=== PATIENT | male | born 1955 | race Caucasian/White ===

== ENCOUNTER 2021-12-27 15:40 | Inpatient (IN) | payer MEDICARE ==
[2021-12-27] MEDS ORDERED: ROCEPHIN 1 Gm-D5w 50 ml Bag** 1 G/50 ML IVPB IV STA (15:42)
[2021-12-27] MEDS ORDERED: solu-MEDROL 125 MG, Sterile H2O 10 ml 2 ML IV ONE ×2 (15:42)
--- NOTE | 2021-12-27 15:42 | ERPHSYRPT ---
- History of Present Illness Time Seen by Provider: 12/27/21 15:42 Source: patient, EMS Exam Limitations: no limitations Physician History: Patient is a 66-year-old male who presents with a complaint of shortness of breath wheezing and weakness for 1 week. He has chronic back pain for which he takes Percocets he also has COPD and is always short of breath but gait got hypoxic this afternoon apparently and had some hallucinations. EMS found his O2 sat at home 1 4 L at 88% they gave him a nebulizer treatment and his O2 sat went to 96. He was afebrile his twelve-lead showed a sinus rhythm rate of 81. Timing/Duration: week(s) (1), worse Severity of Dyspnea-Max: moderate Severity of Dyspnea-Current: mild Possible Cause: frequent episodes Associated Symptoms: No chest pain/discomfort Allergies/Adverse Reactions: No Known Drug Allergies Allergy (Verified 12/27/21 15:42) Home Medications: Amlodipine Besylate [Norvasc] 1 tab PO DAILY 12/27/21 [History] Fluticasone/Umeclidin/Vilanter [Trelegy Ellipta 100-62.5-25] 1 puff PO DAILY 12/27/21 [History] Losartan Potassium [Cozaar] 1 tab PO DAILY 12/27/21 [History] Meloxicam [Mobic] 1 tab PO DAILY 12/27/21 [History] Oxycodone / APAP 10/325 mg [Oxycodone-Acetaminophen 10-325] 1 tab PO TID 12/27/21 [History] - Review of Systems Constitutional: No Fever, No Chills Eyes: No Symptoms Ears, Nose, & Throat: No Symptoms Respiratory: Dyspnea, Dyspnea on Exertion (LUND), No Cough Cardiac: No Chest Pain, No Edema, No Syncope Abdominal/Gastrointestinal: No Abdominal Pain, No Nausea, No Vomiting, No Diarrhea Genitourinary Symptoms: No Dysuria Musculoskeletal: Back Pain, No Neck Pain Skin: No Rash Neurological: No Dizziness, No Focal Weakness, No Sensory Changes Psychological: No Symptoms Endocrine: No Symptoms All Other Systems: Reviewed and Negative - Nursing Vital Signs Nursing Vital Signs: Initial Vital Signs Temperature 98.5 F 12/27/21 15:40 Pulse Rate 81 12/27/21 15:40 Respiratory Rate 20 12/27/21 15:40 Blood Pressure 179/92 12/27/21 15:40 O2 Sat by Pulse Oximetry 91 L 12/27/21 15:40 Pain Scale Pain Intensity 0 - Physical Exam General Appearance: mild distress Eye Exam: PERRL/EOMI Ears, Nose, Throat Exam: hearing grossly normal, normal ENT inspection Neck Exam: normal inspection, supple Respiratory Exam: respiratory distress, airway intact, wheezing Cardiovascular/Chest Exam: normal heart sounds, regular rate/rhythm Abdominal/Gastrointestinal Exam: soft, No tenderness, No distention, No mass Extremity Exam: non-tender, normal range of motion, normal inspection, no calf tenderness, no pedal edema Neurologic Exam: alert, oriented x 3, cooperative, content management specialist II-XII nml as tested, sensation nml, No motor deficits Skin Exam: normal color, warm, dry SpO2 Interpretation: hypoxic, O2 applied SpO2: 99 O2 Delivery: Nasal Cannula - Course Nursing assessment & vital signs reviewed: Yes EKG Interpreted by Me: RATE (81), Other (Indeterminate axis nonspecific ST-T wave changes) - Radiology Exams Chest X-ray Interpretation: Other (Chest x-ray shows bilateral basilar infiltrates ve rsus atelectasis) Ordered Tests: Active Orders 24 hr Category Date Time Status EKG-ER Only STAT Care 12/27/21 15:42 Active IV Insertion STAT Care 12/27/21 15:42 Active Oxygen-ED Only Nasal Cannula 4 lpm Care 12/27/21 15:42 Active CHEST 1 VIEW (PORTABLE) Stat Exams 12/27/21 15:43 Completed BLOOD CULTURE Stat Lab 12/27/21 16:00 Received CBC W DIFF Stat Lab 12/27/21 16:00 Completed CMP Stat Lab 12/27/21 16:00 Completed D-DIMER QUANTITATIVE Stat Lab 12/27/21 16:00 Completed Lactic Acid Stat Lab 12/27/21 15:42 Completed MAGNESIUM Stat Lab 12/27/21 16:00 Completed NT PRO BNP Stat Lab 12/27/21 16:00 Completed PROTIME WITH INR Stat Lab 12/27/21 16:00 Completed TROPONIN Q3H Lab 12/27/21 16:00 Completed TROPONIN Q3H Lab 12/27/21 18:45 Ordered TROPONIN Q3H Lab 12/27/21 21:45 Ordered TROPONIN Q3H Lab 12/28/21 00:45 Ordered TROPONIN Q3H Lab 12/28/21 03:45 Ordered UA W/RFX CULTURE Stat Lab 12/27/21 17:25 Results Respiratory Therapy Assessment DAILY RT 12/27/21 16:25 Active Respiratory Therapy Consult ONCE RT 12/27/21 15:45 Completed Medication Summary Discontinued Medications Generic Name Dose Route Start Last Admin Trade Name Sara PRN Reason Stop Dose Admin Albuterol/Ipratropium Confirm 12/27/21 16:20 Ipratropium/Albuterol Sulfate 3 Ml Ampul.Neb Administered 12/27/21 16:21 Dose 3 ml IH .STK-MED ONE Albuterol/Ipratropium 3 ml 12/27/21 16:23 12/27/21 16:24 Ipratropium/Albuterol Sulfate 3 Ml Ampul.Neb IH 12/27/21 16:24 3 ml STAT ONE Administration Methylprednisolone Sodium 0 mg 12/27/21 15:42 12/27/21 15:57 Succinate 125 mg/ Sterile IV 12/27/21 15:43 125 mg Water 2 ml STAT ONE Administration Furosemide 40 mg 12/27/21 16:20 12/27/21 16:45 Furosemide 40 Mg/4 Ml Vial IV 12/27/21 16:21 40 mg STAT ONE Administration Furosemide Confirm 12/27/21 16:45 Furosemide 40 Mg/4 Ml Vial Administered 12/27/21 16:46 Dose 40 mg .ROUTE .STK-MED ONE Ceftriaxone Sodium/Dextrose 1 g in 50 mls @ 100 mls/hr 12/27/21 15:42 12/27/21 16:27 Rocephin 1 Gm-D5w 50 Ml Bag IV 12/27/21 16:11 Infused STAT STA Infusion Ceftriaxone Sodium/Dextrose Confirm 12/27/21 15:54 Rocephin 1 Gm-D5w 50 Ml Bag Administered 12/27/21 15:55 Dose 1 g in 50 mls @ ud IV .STK-MED ONE Methylprednisolone Sodium Succinate Confirm 12/27/21 15:54 Methylprednis Sod Succ 125 Mg/2 Ml Vial Administered 12/27/21 15:55 Dose 125 mg .ROUTE .STK-MED ONE Sterile Water Confirm 12/27/21 15:54 Water For Injection,Sterile 10 Ml Vial Administered 12/27/21 15:55 Dose 10 ml IJ .STK-MED ONE Lab/Rad Data: Laboratory Result Diagrams 12/27/21 16:00 12/27/21 16:00 Laboratory Results 12/27/21 12/27/21 12/27/21 Range/Units 17:25 16:00 16:00 WBC (4.0-10.5) x10^3/uL RBC (4.1-5.6) x10^6/uL Hgb (12.5-18.0) g/dL Hct (42-50) % MCV (78-100) fL MCH (26-32) pg MCHC (32-36) g/dL RDW (11.5-14.0) % Plt Count (150-450) x10^3/uL MPV (7.5-11.0) fL Gran % (36.0-66.0) % Immature Gran % (Auto) (0.00-0.4) % Nucleat RBC Rel Count (0.00-0.1) % Eos # (Auto) (0-0.5) x10^3/uL Immature Gran # (Auto) (0.00-0.03) x10^3u/L Absolute Lymphs (auto) (1.0-4.6) x10^3/uL Absolute Monos (auto) (0.0-1.3) x10^3/uL Absolute Nucleated RBC (0.00-0.01) x10^3u/L Lymphocytes % (24.0-44.0) % Monocytes % (0.0-12.0) % Eosinophils % (0.00-5.0) % Basophils % (0.0-0.4) % Absolute Granulocytes (1.4-6.9) x10^3/uL Basophils # (0-0.4) x10^3/uL PT (9.4-12.5) SECONDS INR (0.8-3.0) D-Dimer (0.0-0.50) mg/L Sodium (137-145) mmol/L Potassium (3.5-5.1) mmol/L Chloride (98-107) mmol/L Carbon Dioxide (22-30) mmol/L Anion Gap (5-15) MEQ/L BUN (9-20) mg/dL Creatinine (0.66-1.25) mg/dL Estimated GFR ML/MIN Glucose (74-106) mg/dL Lactic Acid (0.4-2.0) Calcium (8.4-10.2) mg/dL Magnesium (1.6-2.3) mg/dL Total Bilirubin (0.2-1.3) mg/dL AST (17-59) U/L ALT (0-50) U/L Alkaline Phosphatase (38-126) U/L Troponin I 0.032 (0.000-0.034) ng/mL NT-Pro-B Natriuret Pep (0-900) pg/mL Serum Total Protein (6.3-8.2) g/dL Albumin (3.5-5.0) g/dL Urinalys Dipstick Clnc MAIN LAB Urine Color YELLOW (YELLOW) Urine Appearance CLEAR (CLEAR) Urine pH 6.0 (5-6) Ur Specific [place] 1.020 (1.005-1.025) POC Urine Protein Conf NEGATIVE (Negative) Urine Ketones NEGATIVE (NEGATIVE) Urine Nitrite NEGATIVE (NEGATIVE) Urine Bilirubin NEGATIVE (NEGATIVE) Urine Urobilinogen 0.2 (0-1) mg/dL Urine Leukocytes NEGATIVE (NEGATIVE) Urine WBC (Auto) Pending Urine RBC (Auto) Pending U Epithel Cells (Auto) Pending Urine Bacteria (Auto) Pending Urine RBC NEGATIVE (0-5) Qasim/ul Ur Culture Indicated? Pending Urine Glucose NEGATIVE (NEGATIVE) mg/dL Influenza Type A Ag NEGATIVE (NEGATIVE) Influenza Type B Ag NEGATIVE (NEGATIVE) RSV (PCR) NEGATIVE (Negative) SARS-CoV-2 (PCR) NEGATIVE (NEGATIVE) 12/27/21 12/27/21 12/27/21 Range/Units 16:00 16:00 16:00 WBC 7.7 (4.0-10.5) x10^3/uL RBC 5.27 (4.1-5.6) x10^6/uL Hgb 14.0 (12.5-18.0) g/dL Hct 47.4 (42-50) % MCV 89.9 (78-100) fL MCH 26.6 (26-32) pg MCHC 29.5 L (32-36) g/dL RDW 15.7 H (11.5-14.0) % Plt Count 322 (150-450) x10^3/uL MPV 10.7 (7.5-11.0) fL Gran % 70.8 H (36.0-66.0) % Immature Gran % (Auto) 0.4 (0.00-0.4) % Nucleat RBC Rel Count 0.0 (0.00-0.1) % Eos # (Auto) 0.12 (0-0.5) x10^3/uL Immature Gran # (Auto) 0.03 (0.00-0.03) x10^3u/L Absolute Lymphs (auto) 1.13 (1.0-4.6) x10^3/uL Absolute Monos (auto) 0.87 (0.0-1.3) x10^3/uL Absolute Nucleated RBC 0.00 (0.00-0.01) x10^3u/L Lymphocytes % 14.8 L (24.0-44.0) % Monocytes % 11.4 (0.0-12.0) % Eosinophils % 1.6 (0.00-5.0) % Basophils % 1.0 (0.0-0.4) % Absolute Granulocytes 5.43 (1.4-6.9) x10^3/uL Basophils # 0.08 (0-0.4) x10^3/uL PT 11.3 (9.4-12.5) SECONDS INR 1.07 (0.8-3.0) D-Dimer 0.97 H* (0.0-0.50) mg/L Sodium 141 (137-145) mmol/L Potassium 4.6 (3.5-5.1) mmol/L Chloride 98 (98-107) mmol/L Carbon Dioxide 38 H (22-30) mmol/L Anion Gap 9.4 (5-15) MEQ/L BUN 21 H (9-20) mg/dL Creatinine 0.93 (0.66-1.25) mg/dL Estimated GFR > 60.0 ML/MIN Glucose 113 H (74-106) mg/dL Lactic Acid (0.4-2.0) Calcium 8.3 L (8.4-10.2) mg/dL Magnesium 2.1 (1.6-2.3) mg/dL Total Bilirubin 0.70 (0.2-1.3) mg/dL AST 23 (17-59) U/L ALT 20 (0-50) U/L Alkaline Phosphatase 128 H (38-126) U/L Troponin I (0.000-0.034) ng/mL NT-Pro-B Natriuret Pep 2900 H (0-900) pg/mL Serum Total Protein 6.9 (6.3-8.2) g/dL Albumin 3.7 (3.5-5.0) g/dL Urinalys Dipstick Clnc Urine Color (YELLOW) Urine Appearance (CLEAR) Urine pH (5-6) Ur Specific [place] (1.005-1.025) POC Urine Protein Conf (Negative) Urine Ketones (NEGATIVE) Urine Nitrite (NEGATIVE) Urine Bilirubin (NEGATIVE) Urine Urobilinogen (0-1) mg/dL Urine Leukocytes (NEGATIVE) Urine WBC (Auto) Urine RBC (Auto) U Epithel Cells (Auto) Urine Bacteria (Auto) Urine RBC (0-5) Qasim/ul Ur Culture Indicated? Urine Glucose (NEGATIVE) mg/dL Influenza Type A Ag (NEGATIVE) Influenza Type B Ag (NEGATIVE) RSV (PCR) (Negative) SARS-CoV-2 (PCR) (NEGATIVE) 12/27/21 Range/Units 15:42 WBC (4.0-10.5) x10^3/uL RBC (4.1-5.6) x10^6/uL Hgb (12.5-18.0) g/dL Hct (42-50) % MCV (78-100) fL MCH (26-32) pg MCHC (32-36) g/dL RDW (11.5-14.0) % Plt Count (150-450) x10^3/uL MPV (7.5-11.0) fL Gran % (36.0-66.0) % Immature Gran % (Auto) (0.00-0.4) % Nucleat RBC Rel Count (0.00-0.1) % Eos # (Auto) (0-0.5) x10^3/uL Immature Gran # (Auto) (0.00-0.03) x10^3u/L Absolute Lymphs (auto) (1.0-4.6) x10^3/uL Absolute Monos (auto) (0.0-1.3) x10^3/uL Absolute Nucleated RBC (0.00-0.01) x10^3u/L Lymphocytes % (24.0-44.0) % Monocytes % (0.0-12.0) % Eosinophils % (0.00-5.0) % Basophils % (0.0-0.4) % Absolute Granulocytes (1.4-6.9) x10^3/uL Basophils # (0-0.4) x10^3/uL PT (9.4-12.5) SECONDS INR (0.8-3.0) D-Dimer (0.0-0.50) mg/L Sodium (137-145) mmol/L Potassium (3.5-5.1) mmol/L Chloride (98-107) mmol/L Carbon Dioxide (22-30) mmol/L Anion Gap (5-15) MEQ/L BUN (9-20) mg/dL Creatinine (0.66-1.25) mg/dL Estimated GFR ML/MIN Glucose (74-106) mg/dL Lactic Acid 0.9 (0.4-2.0) Calcium (8.4-10.2) mg/dL Magnesium (1.6-2.3) mg/dL Total Bilirubin (0.2-1.3) mg/dL AST (17-59) U/L ALT (0-50) U/L Alkaline Phosphatase (38-126) U/L Troponin I (0.000-0.034) ng/mL NT-Pro-B Natriuret Pep (0-900) pg/mL Serum Total Protein (6.3-8.2) g/dL Albumin (3.5-5.0) g/dL Urinalys Dipstick Clnc Urine Color (YELLOW) Urine Appearance (CLEAR) Urine pH (5-6) Ur Specific [place] (1.005-1.025) POC Urine Protein Conf (Negative) Urine Ketones (NEGATIVE) Urine Nitrite (NEGATIVE) Urine Bilirubin (NEGATIVE) Urine Urobilinogen (0-1) mg/dL Urine Leukocytes (NEGATIVE) Urine WBC (Auto) Urine RBC (Auto) U Epithel Cells (Auto) Urine Bacteria (Auto) Urine RBC (0-5) Qasim/ul Ur Culture Indicated? Urine Glucose (NEGATIVE) mg/dL Influenza Type A Ag (NEGATIVE) Influenza Type B Ag (NEGATIVE) RSV (PCR) (Negative) SARS-CoV-2 (PCR) (NEGATIVE) - Progress Progress: improved Air Movement: fair Blood Culture(s) Obtained: Yes Antibiotics given: Yes Discussed with : Tom Will see patient in: hospital (observation) - Departure Departure Disposition: Observation Clinical Impression: CHF (congestive heart failure), COPD exacerbation Condition: Fair Critical Care Time: No Referrals: DOCTOR,NO FAMILY [Primary Care Provider] - Follow up/PCP as directed Instructions: Heart Failure, Chronic Obstructive Pulmonary Disease
[2021-12-27] MEDS ORDERED: Sterile H2O 10 ml IJ ONE ×2 (15:54→20:50)
[2021-12-27] MEDS ORDERED: ROCEPHIN 1 Gm-D5w 50 ml Bag** 1 G/50 ML IVPB IV ONE (15:54)
[2021-12-27] MEDS ORDERED: solu-MEDROL ONE ×2 (15:54→20:49)
[2021-12-27] MEDS ORDERED: Lasix 40 MG/4 ML IV ONE (16:20)
[2021-12-27] MEDS ORDERED: DUONEB 0.5-3 MG/3 ml Neb IH ONE ×2 (16:20→16:23)
[2021-12-27 16:24] LABS: Absolute Neutrophil Ct (ANC) 5.43 x10^3/uL (1.4-6.9); Basophil (Absolute #) 0.08 x10^3/uL (0-0.4); Eosinophil % 1.6 % (0.00-5.0); Eosinophil (Absolute #) 0.12 x10^3/uL (0-0.5); Hematocrit 47.4 % (42-50); Lymphocyte (Absolute #) 1.13 x10^3/uL (1.0-4.6); Lymphocytes % 14.8 % (24.0-44.0); Mean Cell Volume 89.9 fL (78-100); Mean Corpuscular Hemoglobin 26.6 pg (26-32); Mean Corpuscular Hgb Concent. 29.5 g/dL (32-36); Mean Platelet Volume 10.7 fL (7.5-11.0); Monocyte (Absolute #) 0.87 x10^3/uL (0.0-1.3); Monocytes % 11.4 % (0.0-12.0); Neutrophil % 70.8 % (36.0-66.0); Platelet Count 322 x10^3/uL (150-450); Red Blood Count 5.27 x10^6/uL (4.1-5.6); Red Cell Distribution Width 15.7 % (11.5-14.0); White Blood Count 7.7 x10^3/uL (4.0-10.5)
[2021-12-27 16:37] LABS: INR 1.07 (0.8-3.0); PROTIME 11.3 SECONDS (9.4-12.5)
[2021-12-27 16:39] LABS: ALBUMIN 3.7 g/dL (3.5-5.0); ALKALINE PHOSPHATASE 128 U/L (38-126); ANION GAP 9.4 MEQ/L (5-15); BLOOD UREA NITROGEN 21 mg/dL (9-20); CHLORIDE 98 mmol/L (98-107); Calcium 8.3 mg/dL (8.4-10.2); Carbon Dioxide 38 mmol/L (22-30); Creatinine 1 0.93 mg/dL (0.66-1.25); EST GLOMERULAR FILTRATION RATE > 60.0 ML/MIN; Glucose 113 mg/dL (74-106); MAGNESIUM 2.1 mg/dL (1.6-2.3); NT PRO BNP 2900 pg/mL (0-900); Potassium 4.6 mmol/L (3.5-5.1); SGOT/AST 23 U/L (17-59); SGPT/ALT 20 U/L (0-50); SODIUM 141 mmol/L (137-145); Total Protein 6.9 g/dL (6.3-8.2)
[2021-12-27] MEDS ORDERED: Lasix 40 MG/4 ML ONE (16:45)
[2021-12-27 16:54] LABS: INFLUENZA A NEGATIVE (NEGATIVE); INFLUENZA B NEGATIVE (NEGATIVE); RESPIRATORY SYNCTIAL VIRUS NEGATIVE (Negative); SARS-CoV-2 Xpert Express NEGATIVE (NEGATIVE)
[2021-12-27 17:08] LABS: D-DIMER QUANTITATIVE 0.97 mg/L (0.0-0.50)
--- NOTE | 2021-12-27 17:08 | XRAY ---
Indication: Short of breath. Comparison: None Portable chest demonstrates moderate left base and mild right base infiltrate/atelectasis without large effusion. A few incidental tiny calcified granulomas. Heart not enlarged. Bony thorax intact with osteopenia and old left clavicle fracture.
[2021-12-27 18:07] LABS: Appearance CLEAR (CLEAR); Bilirubin NEGATIVE (NEGATIVE); Dipstick done @ ? MAIN LAB; Glucose NEGATIVE (NEGATIVE); Ketones NEGATIVE (NEGATIVE); Nitrite NEGATIVE (NEGATIVE); Protein,Urine Dip NEGATIVE (Negative); RBC NEGATIVE Ery/ul (0-5); Urobilinogen 0.2 mg/dL (0-1)
[2021-12-27 18:22] LABS: Epithelial Cells RARE /HPF (FEW); RBC 0-2 /HPF (0-2)
[2021-12-27 18:25] LABS: Bacteria NONE SEEN /HPF (NEGATIVE); Urine Cultured Indicated? NO
[2021-12-27] MEDS: PROVENTIL 2.5 MG/3 ML NEB IH SCH ×2 (19:39→21:37)
[2021-12-27] MEDS: Advair Hfa 115/21 Common canister IH SCH (19:42)
[2021-12-27] MEDS: OXYCODONE-ACETAMINOPHEN 10-325 PO PRN (20:56)
[2021-12-27] MEDS ORDERED: Cozaar 50 MG PO ONE (22:00)
[2021-12-27] MEDS ORDERED: NORVASC 5 MG PO ONE (22:00)
[2021-12-27] MEDS ORDERED: MELOXICAM PO ONE (22:00)
[2021-12-28] MEDS: PROVENTIL 2.5 MG/3 ML NEB IH SCH ×6 (02:55→22:36)
[2021-12-28 05:16] LABS: Hematocrit 52.7 % (42-50); Hemoglobin 15.6 g/dL (12.5-18.0); Mean Cell Volume 89.8 fL (78-100); Mean Corpuscular Hemoglobin 26.6 pg (26-32); Mean Corpuscular Hgb Concent. 29.6 g/dL (32-36); Mean Platelet Volume 10.7 fL (7.5-11.0); Platelet Count 378 x10^3/uL (150-450); Red Blood Count 5.87 x10^6/uL (4.1-5.6); Red Cell Distribution Width 15.8 % (11.5-14.0); White Blood Count 7.1 x10^3/uL (4.0-10.5)
[2021-12-28 06:13] LABS: ALBUMIN 3.9 g/dL (3.5-5.0); ALKALINE PHOSPHATASE 142 U/L (38-126); BLOOD UREA NITROGEN 24 mg/dL (9-20); CHLORIDE 94 mmol/L (98-107); Calcium 8.5 mg/dL (8.4-10.2); Creatinine 1 1.04 mg/dL (0.66-1.25); EST GLOMERULAR FILTRATION RATE > 60.0 ML/MIN; Glucose 202 mg/dL (74-106); Potassium 5.3 mmol/L (3.5-5.1); SGOT/AST 23 U/L (17-59); SGPT/ALT 24 U/L (0-50); SODIUM 143 mmol/L (137-145); Total Protein 7.1 g/dL (6.3-8.2)
[2021-12-28 06:20] LABS: Carbon Dioxide 39 mmol/L (22-30)
[2021-12-28 06:31] LABS: ANION GAP 15.3 MEQ/L (5-15)
[2021-12-28] MEDS: Advair Hfa 115/21 Common canister IH SCH ×2 (07:05→18:23)
[2021-12-28] MEDS: OXYCODONE-ACETAMINOPHEN 10-325 PO PRN ×3 (07:21→22:39)
[2021-12-28] MEDS: solu-MEDROL 60 MG, Sterile H2O 10 ml 2 ML IV SCH ×10 (07:37→23:39)
[2021-12-28] MEDS ORDERED: Lasix 40 MG/4 ML IV SCH ×2 (08:15→10:00)
[2021-12-28] MEDS ORDERED: ZITHROMAX IV*** 0 MG in Sodium Chloride 0.9% 250 ML 250 ML IV SCH (08:30)
[2021-12-28] MEDS ORDERED: ROCEPHIN 1 Gm-D5w 50 ml Bag** 1 G/50 ML IVPB IV SCH (08:30)
--- NOTE | 2021-12-28 09:12 | PCM.HP ---
History of Present Illness - Chief Complaint Chief Complaint: CHF History of Present Illness: is a 66 year old male pt with no local MD with PMHx COPD who was admitted through ER with increased SOB, weakness, and hallucinations. Apparently has longstanding SOB, but decided he needed some help yesterday after several weeks of intermittent auditory and visual hallucinations and increased cough. Was feeling very badly at home. He called his landlady who assisted him in getting to the ER. In the ER, he decided he wanted to leave, states they wouldn't take him back home, which irritated him. He then called his sister who suggested he stay in the hospital several days. He had sweats overnight and one slightly elevated troponin; other 2 troponins nl. EKG without acute changes. Was having some sweats, but said he has those at home. This morning he is alert and oriented x3. He is on 6L oximask. He would like to drink his coffee, but is unable to by himself. He does smoke 2 PPD rolled cigarettes. Does not drink alcohol or do illicit drugs. - Review of Systems Constitutional: No Fever Respiratory: Cough, Short Of Breath Cardiac: No Edema Psychological: Depression, No Suicidal Ideations All Other Systems: Reviewed and Negative (Reviewed, however pt with hallucinations over couple of weeks) Medications & Allergies Home Medications: Home Medication List Amlodipine Besylate [Norvasc] 10 mg PO DAILY 12/27/21 [History Confirmed 12/27/21] Fluticasone/Umeclidin/Vilanter [Trelegy Ellipta 100-62.5-25] 1 puff PO DAILY 12/27/21 [History Confirmed 12/27/21] Losartan Potassium [Cozaar] 100 mg PO DAILY 12/27/21 [History Confirmed 12/27/21] Meloxicam [Mobic] 15 mg PO DAILY 12/27/21 [History Confirmed 12/27/21] Oxycodone / APAP 10/325 mg [Oxycodone-Acetaminophen 10-325] 1 tab PO TID PRN 12/27/21 [History Confirmed 12/27/21] Allergies/Adverse Reactions: Allergies Allergy/AdvReac Type Severity Reaction Status Date / Time No Known Drug Allergies Allergy Verified 12/27/21 15:42 - Past Medical History Past Medical History: Yes Neurological History: No Pertinent History ENT History: No Pertinent History Cardiac History: Hypertension Respiratory History: COPD, Pneumonia Endocrine Medical History: Other Musculoskelatal History: Arthritis GI Medical History: No Pertinent History History: No Pertinent History Pyscho-Social History: Depression Male Reproductive Disorders: No Pertinent History Comment: chronic back pain, thyroid cyst, prediabetic - Past Surgical History Past Surgical History: Yes Neuro Surgical History: No Pertinent History Cardiac History: No Pertinent History Respiratory Surgery: No Pertinent History GI Surgical History: No Pertinent History Genitourinary Surgical Hx: No Pertinent History Musculskeletal Surgical Hx: Other Male Surgical History: No Pertinent History Other Surgical History: Back surgery, thyroid cyst removal - Social History Smoking Status: Current every day smoker How long have you smoked: YEARS Exposure to second hand smoke: No Alcohol: None Drug Use: none - Physical Exam Vital Signs: Vital Signs - 24 hr Temp Pulse Resp BP Pulse Ox 12/28/21 07:16 98.1 F 98 H 16 174/79 95 12/28/21 07:05 96 H 26 H 93 L 12/28/21 04:00 97.3 F 102 H 15 168/77 95 12/28/21 02:55 102 H 15 95 12/28/21 01:00 96 12/27/21 23:57 98.7 F 98 H 20 137/66 88 L 12/27/21 21:47 99.3 F 89 22 194/90 91 L 12/27/21 21:37 89 22 91 L 12/27/21 20:00 99.3 F 88 22 194/90 88 L 12/27/21 19:42 92 H 21 92 L 12/27/21 18:16 99 12/27/21 17:30 88 20 170/85 93 L 12/27/21 16:30 84 20 176/94 95 12/27/21 16:25 77 24 97 12/27/21 15:40 98.5 F 81 20 179/92 91 L General Appearance: mild distress, obese Neurologic Exam: oriented x 3, cooperative Eye Exam: eyes nml inspection Ears, Nose, Throat Exam: moist mucous membranes Neck Exam: normal inspection Respiratory Exam: crackles/rales (scattered), wheezing (expiratory, througho ut.), No rhonchi Cardiovascular Exam: regular rate/rhythm, normal heart sounds, No murmur Gastrointestinal/Abdomen Exam: soft, normal bowel sounds, distention, No tenderness, No mass, No guarding, No rebound Extremity Exam: normal inspection, No pedal edema, No swelling Skin Exam: normal color, warm, dry, No rash Results - Labs Lab/Micro Results: Lab Results-Last 24 Hours 12/27/21 12/27/21 12/27/21 Range/Units 15:42 15:42 16:00 WBC 7.7 (4.0-10.5) x10^3/uL RBC 5.27 (4.1-5.6) x10^6/uL Hgb 14.0 (12.5-18.0) g/dL Hct 47.4 (42-50) % MCV 89.9 (78-100) fL MCH 26.6 (26-32) pg MCHC 29.5 L (32-36) g/dL RDW 15.7 H (11.5-14.0) % Plt Count 322 (150-450) x10^3/uL MPV 10.7 (7.5-11.0) fL Gran % 70.8 H (36.0-66.0) % Immature Gran % (Auto) 0.4 (0.00-0.4) % Nucleat RBC Rel Count 0.0 (0.00-0.1) % Eos # (Auto) 0.12 (0-0.5) x10^3/uL Immature Gran # (Auto) 0.03 (0.00-0.03) x10^3u/L Absolute Lymphs (auto) 1.13 (1.0-4.6) x10^3/uL Absolute Monos (auto) 0.87 (0.0-1.3) x10^3/uL Absolute Nucleated RBC 0.00 (0.00-0.01) x10^3u/L Lymphocytes % 14.8 L (24.0-44.0) % Monocytes % 11.4 (0.0-12.0) % Eosinophils % 1.6 (0.00-5.0) % Basophils % 1.0 (0.0-0.4) % Absolute Granulocytes 5.43 (1.4-6.9) x10^3/uL Basophils # 0.08 (0-0.4) x10^3/uL PT (9.4-12.5) SECONDS INR (0.8-3.0) D-Dimer (0.0-0.50) mg/L Sodium (137-145) mmol/L Potassium (3.5-5.1) mmol/L Chloride (98-107) mmol/L Carbon Dioxide (22-30) mmol/L Anion Gap (5-15) MEQ/L BUN (9-20) mg/dL Creatinine (0.66-1.25) mg/dL Estimated GFR ML/MIN Glucose (74-106) mg/dL Lactic Acid 0.9 (0.4-2.0) Calcium (8.4-10.2) mg/dL Magnesium (1.6-2.3) mg/dL Total Bilirubin (0.2-1.3) mg/dL AST (17-59) U/L ALT (0-50) U/L Alkaline Phosphatase (38-126) U/L Troponin I (0.000-0.034) ng/mL NT-Pro-B Natriuret Pep (0-900) pg/mL Serum Total Protein (6.3-8.2) g/dL Albumin (3.5-5.0) g/dL Procalcitonin 0.095 H (0.030-0.080) ng/mL Urinalys Dipstick Clnc Urine Color (YELLOW) Urine Appearance (CLEAR) Urine pH (5-6) Ur Specific [place] (1.005-1.025) POC Urine Protein Conf (Negative) Urine Ketones (NEGATIVE) Urine Nitrite (NEGATIVE) Urine Bilirubin (NEGATIVE) Urine Urobilinogen (0-1) mg/dL Urine Leukocytes (NEGATIVE) Urine WBC (Auto) (0-5) /HPF Urine RBC (Auto) (0-2) /HPF U Epithel Cells (Auto) (FEW) /HPF Urine Bacteria (Auto) (NEGATIVE) /HPF Urine RBC (0-5) Qasim/ul Ur Culture Indicated? Urine Glucose (NEGATIVE) mg/dL Influenza Type A Ag (NEGATIVE) Influenza Type B Ag (NEGATIVE) RSV (PCR) (Negative) SARS-CoV-2 (PCR) (NEGATIVE) 12/27/21 12/27/21 12/27/21 Range/Units 16:00 16:00 16:00 WBC (4.0-10.5) x10^3/uL RBC (4.1-5.6) x10^6/uL Hgb (12.5-18.0) g/dL Hct (42-50) % MCV (78-100) fL MCH (26-32) pg MCHC (32-36) g/dL RDW (11.5-14.0) % Plt Count (150-450) x10^3/uL MPV (7.5-11.0) fL Gran % (36.0-66.0) % Immature Gran % (Auto) (0.00-0.4) % Nucleat RBC Rel Count (0.00-0.1) % Eos # (Auto) (0-0.5) x10^3/uL Immature Gran # (Auto) (0.00-0.03) x10^3u/L Absolute Lymphs (auto) (1.0-4.6) x10^3/uL Absolute Monos (auto) (0.0-1.3) x10^3/uL Absolute Nucleated RBC (0.00-0.01) x10^3u/L Lymphocytes % (24.0-44.0) % Monocytes % (0.0-12.0) % Eosinophils % (0.00-5.0) % Basophils % (0.0-0.4) % Absolute Granulocytes (1.4-6.9) x10^3/uL Basophils # (0-0.4) x10^3/uL PT 11.3 (9.4-12.5) SECONDS INR 1.07 (0.8-3.0) D-Dimer 0.97 H* (0.0-0.50) mg/L Sodium 141 (137-145) mmol/L Potassium 4.6 (3.5-5.1) mmol/L Chloride 98 (98-107) mmol/L Carbon Dioxide 38 H (22-30) mmol/L Anion Gap 9.4 (5-15) MEQ/L BUN 21 H (9-20) mg/dL Creatinine 0.93 (0.66-1.25) mg/dL Estimated GFR > 60.0 ML/MIN Glucose 113 H (74-106) mg/dL Lactic Acid (0.4-2.0) Calcium 8.3 L (8.4-10.2) mg/dL Magnesium 2.1 (1.6-2.3) mg/dL Total Bilirubin 0.70 (0.2-1.3) mg/dL AST 23 (17-59) U/L ALT 20 (0-50) U/L Alkaline Phosphatase 128 H (38-126) U/L Troponin I 0.032 (0.000-0.034) ng/mL NT-Pro-B Natriuret Pep 2900 H (0-900) pg/mL Serum Total Protein 6.9 (6.3-8.2) g/dL Albumin 3.7 (3.5-5.0) g/dL Procalcitonin (0.030-0.080) ng/mL Urinalys Dipstick Clnc Urine Color (YELLOW) Urine Appearance (CLEAR) Urine pH (5-6) Ur Specific [place] (1.005-1.025) POC Urine Protein Conf (Negative) Urine Ketones (NEGATIVE) Urine Nitrite (NEGATIVE) Urine Bilirubin (NEGATIVE) Urine Urobilinogen (0-1) mg/dL Urine Leukocytes (NEGATIVE) Urine WBC (Auto) (0-5) /HPF Urine RBC (Auto) (0-2) /HPF U Epithel Cells (Auto) (FEW) /HPF Urine Bacteria (Auto) (NEGATIVE) /HPF Urine RBC (0-5) Qasim/ul Ur Culture Indicated? Urine Glucose (NEGATIVE) mg/dL Influenza Type A Ag (NEGATIVE) Influenza Type B Ag (NEGATIVE) RSV (PCR) (Negative) SARS-CoV-2 (PCR) (NEGATIVE) 12/27/21 12/27/21 12/27/21 Range/Units 16:00 17:25 18:45 WBC (4.0-10.5) x10^3/uL RBC (4.1-5.6) x10^6/uL Hgb (12.5-18.0) g/dL Hct (42-50) % MCV (78-100) fL MCH (26-32) pg MCHC (32-36) g/dL RDW (11.5-14.0) % Plt Count (150-450) x10^3/uL MPV (7.5-11.0) fL Gran % (36.0-66.0) % Immature Gran % (Auto) (0.00-0.4) % Nucleat RBC Rel Count (0.00-0.1) % Eos # (Auto) (0-0.5) x10^3/uL Immature Gran # (Auto) (0.00-0.03) x10^3u/L Absolute Lymphs (auto) (1.0-4.6) x10^3/uL Absolute Monos (auto) (0.0-1.3) x10^3/uL Absolute Nucleated RBC (0.00-0.01) x10^3u/L Lymphocytes % (24.0-44.0) % Monocytes % (0.0-12.0) % Eosinophils % (0.00-5.0) % Basophils % (0.0-0.4) % Absolute Granulocytes (1.4-6.9) x10^3/uL Basophils # (0-0.4) x10^3/uL PT (9.4-12.5) SECONDS INR (0.8-3.0) D-Dimer (0.0-0.50) mg/L Sodium (137-145) mmol/L Potassium (3.5-5.1) mmol/L Chloride (98-107) mmol/L Carbon Dioxide (22-30) mmol/L Anion Gap (5-15) MEQ/L BUN (9-20) mg/dL Creatinine (0.66-1.25) mg/dL Estimated GFR ML/MIN Glucose (74-106) mg/dL Lactic Acid (0.4-2.0) Calcium (8.4-10.2) mg/dL Magnesium (1.6-2.3) mg/dL Total Bilirubin (0.2-1.3) mg/dL AST (17-59) U/L ALT (0-50) U/L Alkaline Phosphatase (38-126) U/L Troponin I 0.033 (0.000-0.034) ng/mL NT-Pro-B Natriuret Pep (0-900) pg/mL Serum Total Protein (6.3-8.2) g/dL Albumin (3.5-5.0) g/dL Procalcitonin (0.030-0.080) ng/mL Urinalys Dipstick Clnc MAIN LAB Urine Color YELLOW (YELLOW) Urine Appearance CLEAR (CLEAR) Urine pH 6.0 (5-6) Ur Specific [place] 1.020 (1.005-1.025) POC Urine Protein Conf NEGATIVE (Negative) Urine Ketones NEGATIVE (NEGATIVE) Urine Nitrite NEGATIVE (NEGATIVE) Urine Bilirubin NEGATIVE (NEGATIVE) Urine Urobilinogen 0.2 (0-1) mg/dL Urine Leukocytes NEGATIVE (NEGATIVE) Urine WBC (Auto) 3-5 (0-5) /HPF Urine RBC (Auto) 0-2 (0-2) /HPF U Epithel Cells (Auto) RARE (FEW) /HPF Urine Bacteria (Auto) NONE SEEN (NEGATIVE) /HPF Urine RBC NEGATIVE (0-5) Qasim/ul Ur Culture Indicated? NO Urine Glucose NEGATIVE (NEGATIVE) mg/dL Influenza Type A Ag NEGATIVE (NEGATIVE) Influenza Type B Ag NEGATIVE (NEGATIVE) RSV (PCR) NEGATIVE (Negative) SARS-CoV-2 (PCR) NEGATIVE (NEGATIVE) 12/27/21 12/28/21 12/28/21 Range/Units 22:02 00:59 05:00 WBC (4.0-10.5) x10^3/uL RBC (4.1-5.6) x10^6/uL Hgb (12.5-18.0) g/dL Hct (42-50) % MCV (78-100) fL MCH (26-32) pg MCHC (32-36) g/dL RDW (11.5-14.0) % Plt Count (150-450) x10^3/uL MPV (7.5-11.0) fL Gran % (36.0-66.0) % Immature Gran % (Auto) (0.00-0.4) % Nucleat RBC Rel Count (0.00-0.1) % Eos # (Auto) (0-0.5) x10^3/uL Immature Gran # (Auto) (0.00-0.03) x10^3u/L Absolute Lymphs (auto) (1.0-4.6) x10^3/uL Absolute Monos (auto) (0.0-1.3) x10^3/uL Absolute Nucleated RBC (0.00-0.01) x10^3u/L Lymphocytes % (24.0-44.0) % Monocytes % (0.0-12.0) % Eosinophils % (0.00-5.0) % Basophils % (0.0-0.4) % Absolute Granulocytes (1.4-6.9) x10^3/uL Basophils # (0-0.4) x10^3/uL PT (9.4-12.5) SECONDS INR (0.8-3.0) D-Dimer (0.0-0.50) mg/L Sodium (137-145) mmol/L Potassium (3.5-5.1) mmol/L Chloride (98-107) mmol/L Carbon Dioxide (22-30) mmol/L Anion Gap (5-15) MEQ/L BUN (9-20) mg/dL Creatinine (0.66-1.25) mg/dL Estimated GFR ML/MIN Glucose (74-106) mg/dL Lactic Acid (0.4-2.0) Calcium (8.4-10.2) mg/dL Magnesium (1.6-2.3) mg/dL Total Bilirubin (0.2-1.3) mg/dL AST (17-59) U/L ALT (0-50) U/L Alkaline Phosphatase (38-126) U/L Troponin I 0.041 H* 0.027 0.020 (0.000-0.034) ng/mL NT-Pro-B Natriuret Pep (0-900) pg/mL Serum Total Protein (6.3-8.2) g/dL Albumin (3.5-5.0) g/dL Procalcitonin (0.030-0.080) ng/mL Urinalys Dipstick Clnc Urine Color (YELLOW) Urine Appearance (CLEAR) Urine pH (5-6) Ur Specific [place] (1.005-1.025) POC Urine Protein Conf (Negative) Urine Ketones (NEGATIVE) Urine Nitrite (NEGATIVE) Urine Bilirubin (NEGATIVE) Urine Urobilinogen (0-1) mg/dL Urine Leukocytes (NEGATIVE) Urine WBC (Auto) (0-5) /HPF Urine RBC (Auto) (0-2) /HPF U Epithel Cells (Auto) (FEW) /HPF Urine Bacteria (Auto) (NEGATIVE) /HPF Urine RBC (0-5) Qasim/ul Ur Culture Indicated? Urine Glucose (NEGATIVE) mg/dL Influenza Type A Ag (NEGATIVE) Influenza Type B Ag (NEGATIVE) RSV (PCR) (Negative) SARS-CoV-2 (PCR) (NEGATIVE) 12/28/21 12/28/21 Range/Units 05:00 05:00 WBC 7.1 (4.0-10.5) x10^3/uL RBC 5.87 H (4.1-5.6) x10^6/uL Hgb 15.6 (12.5-18.0) g/dL Hct 52.7 H (42-50) % MCV 89.8 (78-100) fL MCH 26.6 (26-32) pg MCHC 29.6 L (32-36) g/dL RDW 15.8 H (11.5-14.0) % Plt Count 378 (150-450) x10^3/uL MPV 10.7 (7.5-11.0) fL Gran % (36.0-66.0) % Immature Gran % (Auto) (0.00-0.4) % Nucleat RBC Rel Count (0.00-0.1) % Eos # (Auto) (0-0.5) x10^3/uL Immature Gran # (Auto) (0.00-0.03) x10^3u/L Absolute Lymphs (auto) (1.0-4.6) x10^3/uL Absolute Monos (auto) (0.0-1.3) x10^3/uL Absolute Nucleated RBC (0.00-0.01) x10^3u/L Lymphocytes % (24.0-44.0) % Monocytes % (0.0-12.0) % Eosinophils % (0.00-5.0) % Basophils % (0.0-0.4) % Absolute Granulocytes (1.4-6.9) x10^3/uL Basophils # (0-0.4) x10^3/uL PT (9.4-12.5) SECONDS INR (0.8-3.0) D-Dimer (0.0-0.50) mg/L Sodium 143 (137-145) mmol/L Potassium 5.3 H (3.5-5.1) mmol/L Chloride 94 L (98-107) mmol/L Carbon Dioxide 39 H (22-30) mmol/L Anion Gap 15.3 H (5-15) MEQ/L BUN 24 H (9-20) mg/dL Creatinine 1.04 (0.66-1.25) mg/dL Estimated GFR > 60.0 ML/MIN Glucose 202 H (74-106) mg/dL Lactic Acid (0.4-2.0) Calcium 8.5 (8.4-10.2) mg/dL Magnesium (1.6-2.3) mg/dL Total Bilirubin 0.50 (0.2-1.3) mg/dL AST 23 (17-59) U/L ALT 24 (0-50) U/L Alkaline Phosphatase 142 H (38-126) U/L Troponin I (0.000-0.034) ng/mL NT-Pro-B Natriuret Pep (0-900) pg/mL Serum Total Protein 7.1 (6.3-8.2) g/dL Albumin 3.9 (3.5-5.0) g/dL Procalcitonin (0.030-0.080) ng/mL Urinalys Dipstick Clnc Urine Color (YELLOW) Urine Appearance (CLEAR) Urine pH (5-6) Ur Specific [place] (1.005-1.025) POC Urine Protein Conf (Negative) Urine Ketones (NEGATIVE) Urine Nitrite (NEGATIVE) Urine Bilirubin (NEGATIVE) Urine Urobilinogen (0-1) mg/dL Urine Leukocytes (NEGATIVE) Urine WBC (Auto) (0-5) /HPF Urine RBC (Auto) (0-2) /HPF U Epithel Cells (Auto) (FEW) /HPF Urine Bacteria (Auto) (NEGATIVE) /HPF Urine RBC (0-5) Qasim/ul Ur Culture Indicated? Urine Glucose (NEGATIVE) mg/dL Influenza Type A Ag (NEGATIVE) Influenza Type B Ag (NEGATIVE) RSV (PCR) (Negative) SARS-CoV-2 (PCR) (NEGATIVE) - Radiology Impressions Radiology Exams & Impressions: Radiology Procedures Category Date Time Status CHEST 1 VIEW (PORTABLE) Stat Exams 12/27/21 15:43 Completed - Other Procedures and Tests Respiratory Therapy 12/27/21 16:25 Respiratory Therapy Assessment DAILY 12/27/21 21:24 Oxygen Nasal Cannula 3 lpm Assessment/Plan (1) Hypoxemia Current Visit: Yes Status: Acute Assessment & Plan: on 6L oximask. Dr. Felipe consulted, thank you. Code(s): R09.02 - HYPOXEMIA (2) Pneumonia Current Visit: Yes Status: Chronic Qualifiers: Pneumonia type: due to unspecified organism Laterality: bilateral Lung location: lower lobe of lung Qualified Code(s): J18.9 - Pneumonia, unspecified organism Assessment & Plan: started zithromax and rocephin. on IV steroid 60mg q6h. Code(s): J18.9 - PNEUMONIA, UNSPECIFIED ORGANISM (3) COPD exacerbation Current Visit: Yes Status: Acute Code(s): J44.1 - CHRONIC OBSTRUCTIVE PULMONARY DISEASE W (ACUTE) EXACERBATION (4) Tobacco abuse Current Visit: Yes Status: Acute Assessment & Plan: start nicotine patch. Code(s): Z72.0 - TOBACCO USE (5) Obesity Current Visit: Yes Status: Chronic Code(s): E66.9 - OBESITY, UNSPECIFIED (6) CHF (congestive heart failure) Current Visit: Yes Status: Chronic Code(s): I50.9 - HEART FAILURE, UNSPECIFIED
[2021-12-28] MEDS: Cozaar 50 MG PO SCH (09:18)
[2021-12-28] MEDS: MELOXICAM PO SCH (09:18)
[2021-12-28] MEDS: Zithromax 500 MG/ 250 ML NaCl Premix 500 MG/250 ML IVPB IV SCH (09:19)
[2021-12-28] MEDS: PATIENT OWN MEDICATION IH SCH ×2 (09:19→14:52)
[2021-12-28] MEDS: NORVASC 5 MG PO SCH (09:19)
[2021-12-28] MEDS: Furosemide 100mg/10 ml Vial IV SCH (09:19)
[2021-12-28] MEDS: ROCEPHIN 1 Gm-D5w 50 ml Bag** 1 G/50 ML IVPB IV SCH (09:19)
[2021-12-28] MEDS: Acidophilus TABLET PO SCH ×3 (09:30→21:28)
[2021-12-28] MEDS: Nicoderm CQ 21 MG TOP SCH (09:30)
[2021-12-28] MEDS ORDERED: NON-FORMULARY ITEM (Fluticasone/Umeclidin/Vilanter [Trelegy Ellipta 100-62.5-25] 1 EACH Bl PO SCH (10:00)
[2021-12-28] MEDS ORDERED: solu-MEDROL ONE ×2 (12:40→16:47)
[2021-12-28] MEDS ORDERED: Cozaar 50 MG PO ONE (22:00)
[2021-12-29] MEDS: PROVENTIL 2.5 MG/3 ML NEB IH SCH ×6 (02:30→22:40)
[2021-12-29] MEDS: solu-MEDROL 60 MG, Sterile H2O 10 ml 2 ML IV SCH ×6 (05:45→17:28)
[2021-12-29] MEDS: Advair Hfa 115/21 Common canister IH SCH ×2 (07:26→19:15)
--- NOTE | 2021-12-29 07:51 | CONS ---
CONSULT DATE: 12/28/2021 HISTORY: Mahendra Dupree is a 66-year-old male with long standing history of pulmonary problems who was brought into [facility] Emergency Room. The patient apparently has been "Not well for the last several weeks". His breathing was progressively worse. Apparently he was helped by his landlady who brought him to the emergency room. He was noted to have significant respiratory difficulty. He clinically appeared to have chronic obstructive pulmonary disease exacerbation. His chest x-ray revealed a left lower lobe infiltrate. A CT chest was ordered however the patient declined this. He may not be able to stand it with claustrophobia. His effort tolerance has been compromised for a long time. He sees a primary care [facility] in [place], [place]. He has been started on Trelegy inhaler that he uses regularly. It is unclear if he has short and long-acting bronchodilators. The patient does report prior history of pneumonia. He does not have supplemental oxygen at home. He lives in a small apartment in [place]. He smokes his own rolled cigarettes approximately over a pack and a half a day. PAST MEDICAL HISTORY: He has history of hypertension, arthritis, obesity and chronic back pain. PAST SURGICAL HISTORY: Back surgery. Thyroid cyst removal. PERSONAL AND SOCIAL HISTORY: As above. He is a . He lost his about ten years ago from cancer. 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 MEDICATIONS: At home he is on Norvasc, Trelegy, Cozaar, Mobic, oxycodone. ALLERGIES: NKDA. PHYSICAL EXAMINATION: This is an elderly male sitting in chair, appears disheveled. Vital signs noted. HEENT: Normocephalic. Oral hygiene is poor. NECK: Short. CVS: First and second heart sounds are normal, regular, rhythmic. RESPIRATORY: Shows diminished breath sounds, fairly diffuse rhonchi heard. ABDOMEN: Obese. EXTREMITIES: Trace edema is noted. LABORATORY DATA AND TESTS: Blood cultures are pending. Troponin is negative. White count 7.1, hemoglobin 15.6, hematocrit 53, PLT 378,000. Sodium 142, potassium 5.3, chloride 94, bicarb 39, glucose 202, BUN 22, creatinine 1.04. Chest x-ray showed left lower lobe infiltrate and calcified granuloma. ASSESSMENT: This is a 66-year-old male admitted with: 1) Chronic obstructive pulmonary disease with acute exacerbation. 2) Left lower lobe community acquired pneumonia. 3) Hypoxemia. 4) Nicotine addiction. 5) Hypertension. 6) Chronic back pain. 7) Obesity. 8) Body habitus suggestive of possible obstructive sleep apnea. RECOMMENDATIONS: 1) I had a long discussion with the patient. 2) I agree with the present treatment, continue IV antibiotics, steroids, bronchodilators. 3) The patient is agreeable for CT scan and will reorder the same for tomorrow morning. 4) PFT at a later point. 5) Polysomnography at a later point. 6) Need for smoking cessation will have to be reiterated upon discharge. 7) The patient will also need home oxygen evaluation prior to discharge. Further recommendations awaiting clinical improvement. Discussed this plan of care with the patient who verbalized his understanding. Thank you for allowing me to participate in the care of this patient.
[2021-12-29] MEDS: OXYCODONE-ACETAMINOPHEN 10-325 PO PRN (08:05)
--- NOTE | 2021-12-29 09:03 | PCM.NOTE ---
Date and Time: 12/29/21 0858 Subjective Assessment: He is complaining that his pain meds don't last long enough - at home takes 1/2 about q3h. Luis Daniel po. Breathing - he says he doesn't notice because he is so bad at baseline. He is on 4L oximizer. - Review of Systems Constitutional: No Fever Respiratory: Cough, Short Of Breath Objective Exam General Appearance: no apparent distress, alert Neurologic Exam: oriented x 3, cooperative Skin Exam: normal color, warm, dry, No rash Respiratory Exam: diminished breath sounds (good air exchange), wheezing (scattered, faint), No crackles/rales, No rhonchi Cardiovascular Exam: regular rate/rhythm, normal heart sounds, No murmur Gastrointestinal/Abdomen Exam: soft, normal bowel sounds, No tenderness, No distention, No mass, No guarding, No rebound Extremity Exam: No pedal edema, No swelling Back Exam: normal inspection, No rash OBJECTIVE DATA Vital Signs: Vital Signs - 24 hr Temp Pulse Resp BP Pulse Ox 12/29/21 07:38 98.0 F 87 16 120/58 92 L 12/29/21 07:27 94 H 20 94 L 12/29/21 04:00 97.1 F 89 18 172/84 96 12/29/21 02:30 88 24 91 L 12/28/21 23:02 97.8 F 92 H 21 159/68 97 12/28/21 22:37 93 H 18 95 12/28/21 19:37 97.7 F 93 H 22 133/63 95 12/28/21 18:28 93 H 22 95 12/28/21 16:00 98.0 F 89 16 122/59 93 L 12/28/21 14:58 71 18 97 12/28/21 11:48 97.9 F 95 H 16 145/66 92 L 12/28/21 11:08 96 H 20 78 L Pain Assessment - Last Documented Pain Intensity 0 Pain Scale Used 0-10 Pain Scale Intake and Output: Intake & Output 12/26/21 12/27/21 12/28/21 12/29/21 11:59 11:59 11:59 11:59 Intake Total 760 730 Output Total 1200 1200 Balance -440 -470 Weight 122.2 kg 120.9 kg Radiology Exams: Radiology Procedures Category Date Time Status CHEST 1 VIEW (PORTABLE) Stat Exams 12/27/21 15:43 Completed CHEST WITHOUT CONTRAST [CT] Routine Exams 12/29/21 07:00 Taken Multi-Disciplinary Progress Notes: Multi-Disciplinary Progress Notes 12/29/21 02:51 Respiratory Note by Amanda Elizondo Increased to 6LPM via oxymizer due to low SpO2. Initialized on 12/29/21 02:51 - END OF NOTE 12/28/21 15:06 Respiratory Note by Becca Mack post tx lpm dec to 4 via oxymizer Initialized on 12/28/21 15:06 - END OF NOTE 12/28/21 14:58 Case Management Note by Martha Recinos REFERRAL TO [facility] AFTER PT VOICED INTEREST IN THIS WITH [facility]. GIVEN A FLYER, AND THEY WILL SEND REP OVER TO DISCUSS THEIR SERVICES. Initialized on 12/28/21 14:58 - END OF NOTE 12/28/21 13:14 Case Management Note by Zoe Christie REFERRAL SENT TO [email or web address] FOR [facility], REFERRAL SENT TO [facility]. UNABLE TO SEND ACO REFERRAL PATIENT'S PRIMARY CARE PHYSICIAN IS NOT ASSOCIATED WITH [facility] Initialized on 12/28/21 13:14 - END OF NOTE Assessment/Plan (1) Hypoxemia Current Visit: Yes Status: Acute Assessment & Plan: improved. Appreciate Dr. Felipe consult Code(s): R09.02 - HYPOXEMIA (2) Pneumonia Current Visit: Yes Status: Chronic Qualifiers: Pneumonia type: due to unspecified organism Laterality: bilateral Lung location: lower lobe of lung Qualified Code(s): J18.9 - Pneumonia, unspecified organism Assessment & Plan: on rocephin/zithromax day #2. Code(s): J18.9 - PNEUMONIA, UNSPECIFIED ORGANISM (3) COPD exacerbation Current Visit: Yes Status: Acute Code(s): J44.1 - CHRONIC OBSTRUCTIVE PULMONARY DISEASE W (ACUTE) EXACERBATION (4) Tobacco abuse Current Visit: Yes Status: Chronic Code(s): Z72.0 - TOBACCO USE (5) Obesity Current Visit: Yes Status: Chronic Code(s): E66.9 - OBESITY, UNSPECIFIED (6) CHF (congestive heart failure) Current Visit: Yes Status: Chronic Code(s): I50.9 - HEART FAILURE, UNSPECIFIED
[2021-12-29] MEDS: Cozaar 50 MG PO SCH (09:11)
[2021-12-29] MEDS: NORVASC 5 MG PO SCH (09:11)
[2021-12-29] MEDS: Acidophilus TABLET PO SCH ×3 (09:11→22:35)
[2021-12-29] MEDS: Nicoderm CQ 21 MG TOP SCH (09:11)
[2021-12-29] MEDS: Furosemide 100mg/10 ml Vial IV SCH (09:11)
[2021-12-29] MEDS: MELOXICAM PO SCH (09:11)
[2021-12-29] MEDS: Zithromax 500 MG/ 250 ML NaCl Premix 500 MG/250 ML IVPB IV SCH (09:12)
--- NOTE | 2021-12-29 09:49 | XRAY ---
Exam: CT of the chest without IV contrast from 12/29/2021. CTDI: 14.94 mGy Comparison: AP upright portable chest film from 12/27/2021. Indication: 66-year-old male with pneumonia; history of tobacco use, COPD, and heart failure. Technique: Non-IV contrast axial images were obtained through the chest. Reconstructed coronal and sagittal images were created and reviewed. Findings: The heart size is mildly enlarged with some left ventricular enlargement. I see no pericardial effusion. Some mild left coronary artery vascular calcification is seen. The main pulmonary artery trunk measures about 4.0 cm in diameter. This may be due to pulmonary artery hypertension. Correlate clinically. I see no abnormal perihilar or mediastinal lymphadenopathy. However, I do note some scattered granulomatous calcifications within the AP window, anterior to the origin of the right mainstem bronchus, and anterior aspect of both khushbu. Atherosclerotic vascular calcification is seen within a normal diameter thoracic aorta. I note considerable pleural calcification about the lateral and posterior aspects of the lower two thirds of the left lung. I do not see any significant pleural effusion, although there is mild irregular pleural thickening adjacent to the pleural calcification. There is significant interstitial infiltrate throughout most of the mid and posterior aspect of the left upper lobe. I also note some focal consolidation extending laterally into the lingula with air bronchograms. This could be due to a combination of lingular pneumonia and atelectasis. See axial images #38 through #42 and sagittal images #163 through #169. There is a small pleural-based focal consolidation at the posterior medial right lung base which could represent a combination of pneumonia and/or atelectasis. A soft tissue lung mass is not seen. Some centrilobular emphysematous changes are seen within the right upper lung field. A few bilateral calcified granulomas are seen. No pneumothorax is evident. The adrenal glands within the upper abdomen appear unremarkable. The gallbladder is mostly contracted within the right upper quadrant. The remainder of the visualized upper abdomen appears unremarkable. Some old healed rib fracture deformities are seen posteriorly on the left. An old healed left clavicle fracture is seen. I see no acute fracture. No obvious bone destruction is seen. Moderate degenerative changes are seen at C5-C6 and C6-C7. Mild vertebral endplate spurring is seen within the upper and mid thoracic spine. Incidentally, there appears to be mild bilateral gynecomastia, a bit more pronounced on the left than right. Impression: 1. There is at least a moderate sized interstitial infiltrate occupying much of the left upper lobe. In addition, focal consolidation consistent with pneumonic infiltrate and atelectasis is seen within the lingula. A small pleural-based consolidation is seen at the posterior medial margin of the right lung base which could be due to focal atelectasis, although some concomitant pneumonic infiltrate cannot be excluded. 2. The heart size is mildly enlarged with left ventricular enlargement and some vascular calcifications within branches of the left coronary artery. I see no pleural fluid. 3. In addition, the left main pulmonary artery trunk is dilated measuring up to 4.0 cm in diameter. This is suggestive of an element of pulmonary artery hypertension. 4. Some mild centrilobular emphysematous changes are seen within the visualized right upper lung field. 5. Pleural calcification and adjacent mild irregular pleural thickening are noted within the lateral and posterior aspect of the lower two thirds of the left lung. 6. Old healed granulomatous disease, atherosclerotic vascular calcifications, and mild bilateral gynecomastia, left greater than right, are also seen.
[2021-12-29] MEDS: ROCEPHIN 1 Gm-D5w 50 ml Bag** 1 G/50 ML IVPB IV SCH (10:23)
[2021-12-29] MEDS: PATIENT OWN MEDICATION IH SCH (12:01)
--- NOTE | 2021-12-29 13:44 | PROG NOTE ---
DATE: 12/29/2021 HISTORY: Mahendra Dupree is a 66-year-old male with chronic obstructive pulmonary disease evaluated yesterday. Currently sitting in a chair, appears tired, denies any acute symptoms. He did have CT performed with results available and reviewed. PHYSICAL EXAMINATION: Vital signs reviewed. HEENT: Normocephalic. Oral exam shows poor oral hygiene. NECK: Short, supple. CVS: First and second heart sounds are normal, regular, rhythmic. RESPIRATORY: Shows diminished breath sounds, bilateral rhonchi heard. ABDOMEN: Obese. EXTREMITIES: Trace edema is noted. LABORATORY DATA AND TESTS: CT chest reviewed. ASSESSMENT: This is a 66-year-old male admitted with: 1) Chronic obstructive pulmonary disease with acute exacerbation. 2) Left lung community acquired pneumonia. 3) Rule out pulmonary hypertension. 4) Hypoxemia. 5) Pleural calcifications. 6) Nicotine addiction. RECOMMENDATIONS: 1) Continue present treatment. The patient needs gradual steroid taper, continue bronchodilators and continue antibiotics. A follow up chest x-ray upon completion of antibiotic therapy for resolution of infiltrate would be advised. 2) He would benefit from annual CT chest mainly to check for the pleural calcification and assess progression of pleural disease. I explained plan of care with the patient and he verbalized his understanding. I will be glad to assist in his care in outpatient setting.
[2021-12-29] MEDS: PERCOCET TABLET 5/325MG PO PRN ×2 (16:04→22:35)
[2021-12-29] MEDS ORDERED: solu-MEDROL ONE (16:49)
[2021-12-30] MEDS: solu-MEDROL 60 MG, Sterile H2O 10 ml 2 ML IV SCH ×10 (00:22→23:34)
[2021-12-30] MEDS: PERCOCET TABLET 5/325MG PO PRN ×5 (03:01→23:35)
[2021-12-30] MEDS: PROVENTIL 2.5 MG/3 ML NEB IH SCH ×7 (04:06→23:44)
[2021-12-30] MEDS ORDERED: solu-MEDROL ONE (06:06)
[2021-12-30] MEDS: Advair Hfa 115/21 Common canister IH SCH ×2 (07:19→19:16)
--- NOTE | 2021-12-30 07:59 | PCM.NOTE ---
Date and Time: 12/30/21 0757 Subjective Assessment: patient notes some improvement, currently on a nasal cannula. still has some cough and shortness of breath Objective Exam General Appearance: no apparent distress, obese Neurologic Exam: alert, oriented x 3 Respiratory Exam: diminished breath sounds, prolonged expirations, rhonchi Cardiovascular Exam: regular rate/rhythm, normal heart sounds Gastrointestinal/Abdomen Exam: soft, No tenderness, No mass Extremity Exam: normal inspection, normal range of motion OBJECTIVE DATA Vital Signs: Vital Signs - 24 hr Temp Pulse Resp BP Pulse Ox 12/30/21 07:23 91 H 20 94 L 12/30/21 04:50 90 24 81 L 12/30/21 04:00 97.5 F 88 15 140/61 94 L 12/30/21 00:00 98.2 F 95 H 18 141/64 98 12/29/21 22:40 94 H 20 95 12/29/21 20:00 97.9 F 98 H 22 120/89 94 L 12/29/21 19:15 97 H 26 H 89 L 12/29/21 16:00 97.9 F 109 H 18 143/71 94 L 12/29/21 15:14 99 H 18 94 L 12/29/21 11:30 97.7 F 90 16 131/68 95 12/29/21 11:20 92 H 19 90 L Pain Assessment - Last Documented Pain Intensity 0 [facility] Intake and Output: Intake & Output 12/27/21 12/28/21 12/29/21 12/30/21 11:59 11:59 11:59 11:59 Intake Total 760 730 680 Output Total 1200 1950 1350 Balance -440 -1220 -670 Weight 122.2 kg 120.9 kg Radiology Exams: Radiology Procedures Category Date Time Status CHEST WITHOUT CONTRAST [CT] Routine Exams 12/29/21 07:00 Completed Multi-Disciplinary Progress Notes: Multi-Disciplinary Progress Notes 12/30/21 04:55 Respiratory Note by Amanda Elizondo RT called to assess patient due to low SpO2. Repositioned patient and nebulizer given at that time. Patient recovered fully. Initialized on 12/30/21 04:55 - END OF NOTE 12/29/21 20:50 Respiratory Note by Amanda Elizondo Patient had an episode of coughing that caused increased SOB. Patient had removed oxygen at that time. Given Nebulizer at that time and placed back on oxygen at 3L oxymizer. Recovered fully Initialized on 12/29/21 20:50 - END OF NOTE 12/29/21 17:10 Physical Therapy Note by Rosy(Michael#[id number])Yesi PT. SEEN BY P.T. THIS P.M. REPORTS LBP AT 6/10 W/ PN MEDS. PT. REPORTS CHRONIC LBP W/ MULTIPLE INJECTIONS AND SX SEVERAL YEARS AGO. PT. SOMEWHAT RELUCTANT TO PARTICIPATE IN P.T., BUT AGREED TO WALK TO ASSESS SAFETY W/ USE OR ROLLATOR. PT. IN CHAIR UPON P.T. ARRIVAL TO ROOM. PT. ON 5 L O2. O2 SATS 95% ON 5 L BUT SAT DIFFICULT TO OBTAIN D/T POOR PERFUSION. PT. PERFOMRED SIT TO STAND W/ CGA- SBA. REQUIRED V.C. TO LOCK ROLLATOR PRIOR TO STANDING. PT. AMBULATED ~ ~60' W/ ROLLATOR ON 6 L O2 AND FLEXED TRUNK POSTURE. PT. REPORTS THIS IS HIS USUAL GAIT POSTURE D/T CHRONIC LBP. PT. REPORTS FATIGUE AFTER WALKING. PT. DID NOT WANT TO GO TO SNF FOR REHAB STAY. TO D/C HOME W/ [facility] WHEN STABLE. STEFANO CONT. P.T. TOLERATED. Initialized on 12/29/21 17:10 - END OF NOTE 12/29/21 12:43 Case Management Note by Zoe Christie S/W PATIENT- HE WAS UPDATED ON PROGRESS OF REFERRALS. NO OTHER NEEDS IDENTIFIED AT THIS TIME. HE CONTINUES TO PLAN TO DC HOME AT TIME OF DC Initialized on 12/29/21 12:43 - END OF NOTE 12/29/21 12:30 [facility] ACCEPTED PATIENT. THEY WILL NEED NOTIFIED AT TIME OF DC AT [phone]. THEY WILL NEED FAXED DC INSTRUCTIONS, DC MED LIST, DC SUMMARY (IF AVAILABLE) TO [phone]. WALKER ORDER WAS ALSO SUBMITTED TO [facility]- IF NOT DELIVERED BY DAY OF DC- NURSING TO CALL [facility] AND REQUEST DELIVERY TO [facility] SO PATIENT CAN HAVE PRIOR TO DC HOME Initialized on 12/29/21 12:30 - END OF NOTE 12/29/21 12:29 Case Management Note by Zoe Christie ORDER FOR ROLLATOR SUBMITTED TO [facility] VIA [employer]. REQUESTED DELIVERY TO [facility] Initialized on 12/29/21 12:29 - END OF NOTE Assessment/Plan (1) COPD exacerbation Current Visit: Yes Status: Acute Assessment & Plan: receiving IV solu medrol, rocephin and zithromax. appears to be improving clinically Code(s): J44.1 - CHRONIC OBSTRUCTIVE PULMONARY DISEASE W (ACUTE) EXACERBATION (2) Pneumonia Current Visit: Yes Status: Chronic Qualifiers: Pneumonia type: due to unspecified organism Laterality: bilateral Lung location: lower lobe of lung Qualified Code(s): J18.9 - Pneumonia, unspecified organism Assessment & Plan: continue rocephin/zithromax, primary disease process clinically seems more c/w copd exacerbation Code(s): J18.9 - PNEUMONIA, UNSPECIFIED ORGANISM (3) Hypoxemia Current Visit: Yes Status: Acute Code(s): R09.02 - HYPOXEMIA
[2021-12-30] MEDS: ROCEPHIN 1 Gm-D5w 50 ml Bag** 1 G/50 ML IVPB IV SCH (10:05)
[2021-12-30] MEDS: NORVASC 5 MG PO SCH (10:05)
[2021-12-30] MEDS: Cozaar 50 MG PO SCH (10:05)
[2021-12-30] MEDS: Acidophilus TABLET PO SCH ×3 (10:06→20:43)
[2021-12-30] MEDS: MELOXICAM PO SCH (10:06)
[2021-12-30] MEDS: Nicoderm CQ 21 MG TOP SCH (10:06)
[2021-12-30] MEDS: Furosemide 100mg/10 ml Vial IV SCH (10:13)
[2021-12-30] MEDS: Zithromax 500 MG/ 250 ML NaCl Premix 500 MG/250 ML IVPB IV SCH (11:10)
[2021-12-30] MEDS ORDERED: Zofran 4 MG/2 ML VIAL IV PRN (11:34)
[2021-12-31] MEDS: PROVENTIL 2.5 MG/3 ML NEB IH SCH ×6 (03:46→23:27)
[2021-12-31] MEDS: solu-MEDROL 60 MG, Sterile H2O 10 ml 2 ML IV SCH ×6 (05:52→18:46)
[2021-12-31 06:37] LABS: Absolute Neutrophil Ct (ANC) 7.18 x10^3/uL (1.4-6.9); Basophil (Absolute #) 0 x10^3/uL (0-0.4); Eosinophil (Absolute #) 0 x10^3/uL (0-0.5); Hematocrit 48.9 % (42-50); Hemoglobin 13.9 g/dL (12.5-18.0); Lymphocyte (Absolute #) 0.22 x10^3/uL (1.0-4.6); Lymphocytes % 2.8 % (24.0-44.0); Mean Cell Volume 92.3 fL (78-100); Mean Corpuscular Hemoglobin 26.2 pg (26-32); Mean Corpuscular Hgb Concent. 28.4 g/dL (32-36); Mean Platelet Volume 10.3 fL (7.5-11.0); Monocyte (Absolute #) 0.46 x10^3/uL (0.0-1.3); Monocytes % 5.8 % (0.0-12.0); Platelet Count 310 x10^3/uL (150-450); Red Cell Distribution Width 15.4 % (11.5-14.0); White Blood Count 7.9 x10^3/uL (4.0-10.5)
[2021-12-31] MEDS: Advair Hfa 115/21 Common canister IH SCH ×2 (06:56→19:26)
[2021-12-31 07:04] LABS: BLOOD UREA NITROGEN 39 mg/dL (9-20); CHLORIDE 93 mmol/L (98-107); Creatinine 1 0.94 mg/dL (0.66-1.25); EST GLOMERULAR FILTRATION RATE > 60.0 ML/MIN; Glucose 204 mg/dL (74-106); MAGNESIUM 2.3 mg/dL (1.6-2.3); SODIUM 139 mmol/L (137-145)
[2021-12-31 07:12] LABS: Carbon Dioxide 42 mmol/L (22-30)
[2021-12-31 07:13] LABS: ANION GAP 9 MEQ/L (5-15)
[2021-12-31 10:27] LABS: Slide Review 1 YES
[2021-12-31] MEDS: Cozaar 50 MG PO SCH (10:56)
[2021-12-31] MEDS: NORVASC 5 MG PO SCH (10:56)
[2021-12-31] MEDS: MELOXICAM PO SCH (10:56)
[2021-12-31] MEDS: Acidophilus TABLET PO SCH ×3 (10:56→21:05)
[2021-12-31] MEDS: Nicoderm CQ 21 MG TOP SCH (10:57)
[2021-12-31] MEDS: Furosemide 100mg/10 ml Vial IV SCH (10:58)
[2021-12-31] MEDS: Zithromax 500 MG/ 250 ML NaCl Premix 500 MG/250 ML IVPB IV SCH ×2 (11:01→12:31)
[2021-12-31] MEDS: PERCOCET TABLET 5/325MG PO PRN ×3 (11:01→23:03)
[2021-12-31] MEDS: ROCEPHIN 1 Gm-D5w 50 ml Bag** 1 G/50 ML IVPB IV SCH ×2 (11:02→12:32)
[2021-12-31] MEDS ORDERED: XYLOCAINE 1% HCL 20 ML MDV ONE (20:04)
[2021-12-31] MEDS ORDERED: DELTASONE 20 MG PO ONE (22:00)
[2021-12-31] MEDS ORDERED: Zithromax 250 MG TABLET PO ONE (22:00)
[2021-12-31] MEDS ORDERED: Rocephin 1000 MG INJ IM ONE (22:00)
[2022-01-01] MEDS: solu-MEDROL 60 MG, Sterile H2O 10 ml 2 ML IV SCH ×10 (00:04→23:51)
[2022-01-01] MEDS: PERCOCET TABLET 5/325MG PO PRN ×6 (03:26→23:50)
[2022-01-01] MEDS: PROVENTIL 2.5 MG/3 ML NEB IH SCH ×2 (05:51→07:26)
[2022-01-01 06:00] LABS: Hematocrit 49.7 % (42-50); Hemoglobin 14.7 g/dL (12.5-18.0); Mean Cell Volume 89.1 fL (78-100); Mean Corpuscular Hemoglobin 26.3 pg (26-32); Mean Corpuscular Hgb Concent. 29.6 g/dL (32-36); Mean Platelet Volume 10.8 fL (7.5-11.0); Platelet Count 321 x10^3/uL (150-450); Red Blood Count 5.58 x10^6/uL (4.1-5.6); Red Cell Distribution Width 15.5 % (11.5-14.0); White Blood Count 7.7 x10^3/uL (4.0-10.5)
[2022-01-01 06:12] LABS: BLOOD UREA NITROGEN 37 mg/dL (9-20); CHLORIDE 89 mmol/L (98-107); Calcium 8.2 mg/dL (8.4-10.2); Creatinine 1 0.91 mg/dL (0.66-1.25); EST GLOMERULAR FILTRATION RATE > 60.0 ML/MIN; Glucose 206 mg/dL (74-106); Potassium 5.1 mmol/L (3.5-5.1); SODIUM 139 mmol/L (137-145)
[2022-01-01 06:47] LABS: ANION GAP 12.1 MEQ/L (5-15); Carbon Dioxide 43 mmol/L (22-30)
[2022-01-01] MEDS: Advair Hfa 115/21 Common canister IH SCH ×2 (07:29→19:27)
[2022-01-01] MEDS: MELOXICAM PO SCH (07:43)
[2022-01-01] MEDS: NORVASC 5 MG PO SCH (07:43)
[2022-01-01] MEDS: Acidophilus TABLET PO SCH ×3 (07:43→21:19)
[2022-01-01] MEDS: Cozaar 50 MG PO SCH (07:44)
[2022-01-01] MEDS: Nicoderm CQ 21 MG TOP SCH (07:44)
[2022-01-01] MEDS ORDERED: PHARMACY DOSING REQUIRED: VANCOMYCIN IV STA (10:23)
[2022-01-01] MEDS ORDERED: PROVENTIL 2.5 MG/3 ML NEB IH PRN (10:28)
[2022-01-01] MEDS: DUONEB 0.5-3 MG/3 ml Neb IH SCH ×3 (10:51→19:31)
[2022-01-01] MEDS: Furosemide 100mg/10 ml Vial IV SCH (11:18)
[2022-01-01] MEDS: Singulair 10 MG PO SCH (11:18)
[2022-01-01] MEDS: ROCEPHIN 1 Gm-D5w 50 ml Bag** 1 G/50 ML IVPB IV SCH (11:19)
[2022-01-01] MEDS: Zithromax 500 MG/ 250 ML NaCl Premix 500 MG/250 ML IVPB IV SCH (11:19)
[2022-01-01] MEDS: THEOPHYLLINE ER 24HR PO SCH ×2 (12:15→21:20)
[2022-01-01] MEDS ORDERED: DUONEB 0.5-3 MG/3 ml Neb IH SCH (13:00)
[2022-01-01] MEDS ORDERED: VANCOMYCIN 1 GRAM/200 ML BAG 1 GM/200 ML PIGGYBACK IV ONE (14:00)
[2022-01-01] MEDS ORDERED: VANCOMYCIN 2 GRAM/400 ML BAG 2 GM/400 ML PIGGYBACK IV ONE (14:00)
[2022-01-01] MEDS: VANCOMYCIN 1.5 GRAM/300 ML BAG 1.5 GM/300 ML PIGGYBACK IV SCH (23:51)
[2022-01-02] MEDS: PERCOCET TABLET 5/325MG PO PRN ×5 (04:14→21:13)
[2022-01-02] MEDS: solu-MEDROL 60 MG, Sterile H2O 10 ml 2 ML IV SCH ×2 (05:46)
[2022-01-02 06:15] LABS: Hematocrit 49.5 % (42-50); Hemoglobin 14.5 g/dL (12.5-18.0); Mean Cell Volume 88.9 fL (78-100); Mean Corpuscular Hgb Concent. 29.3 g/dL (32-36); Platelet Count 292 x10^3/uL (150-450); Red Blood Count 5.57 x10^6/uL (4.1-5.6); White Blood Count 7.3 x10^3/uL (4.0-10.5)
[2022-01-02 06:25] LABS: ALBUMIN 3.2 g/dL (3.5-5.0); ALKALINE PHOSPHATASE 98 U/L (38-126); BLOOD UREA NITROGEN 38 mg/dL (9-20); CHLORIDE 90 mmol/L (98-107); Creatinine 1 0.82 mg/dL (0.66-1.25); EST GLOMERULAR FILTRATION RATE > 60.0 ML/MIN; Glucose 255 mg/dL (74-106); Potassium 4.8 mmol/L (3.5-5.1); SGOT/AST 22 U/L (17-59); SGPT/ALT 54 U/L (0-50); SODIUM 136 mmol/L (137-145); Total Protein 6.1 g/dL (6.3-8.2)
[2022-01-02 06:36] LABS: ANION GAP 9.8 MEQ/L (5-15); Carbon Dioxide 41 mmol/L (22-30)
[2022-01-02] MEDS: DUONEB 0.5-3 MG/3 ml Neb IH SCH ×4 (07:18→19:54)
[2022-01-02] MEDS: Advair Hfa 115/21 Common canister IH SCH ×2 (07:22→19:54)
--- NOTE | 2022-01-02 07:36 | XRAY ---
Indication: Short of breath. COPD exacerbation. Comparison: December 27, 2021. Portable chest but inflated with grossly stable left mid to lower lung subsegmental atelectasis/scarring and calcified pleural plaquing. Clearing of recent CT proven left upper lobe airspace disease. Remaining heart and lungs unremarkable again with a few incidental tiny calcified granulomas.
[2022-01-02] MEDS: NORVASC 5 MG PO SCH (08:44)
[2022-01-02] MEDS: MELOXICAM PO SCH (08:45)
[2022-01-02] MEDS: Cozaar 50 MG PO SCH (08:45)
[2022-01-02] MEDS: Acidophilus TABLET PO SCH ×3 (08:45→21:14)
[2022-01-02] MEDS: Singulair 10 MG PO SCH (08:45)
[2022-01-02] MEDS: THEOPHYLLINE ER 24HR PO SCH ×2 (08:46→21:11)
[2022-01-02] MEDS: Nicoderm CQ 21 MG TOP SCH (08:48)
--- NOTE | 2022-01-02 10:38 | PCM.NOTE ---
Date and Time: 01/02/22 1032 Subjective Assessment: Pt has no complaints about his breathing. He is tolerating po. On 3L NC. - Review of Systems Constitutional: No Fever Respiratory: Cough, Short Of Breath Objective Exam General Appearance: no apparent distress, alert, obese Neurologic Exam: oriented x 3, cooperative Skin Exam: normal color, warm, dry, No rash Eye Exam: eyes nml inspection Ears, Nose, Throat Exam: moist mucous membranes Neck Exam: non-tender Respiratory Exam: lungs clear, diminished breath sounds (poor AE), No crackles/rales, No rhonchi, No wheezing Cardiovascular Exam: regular rate/rhythm, normal heart sounds, No murmur Gastrointestinal/Abdomen Exam: normal bowel sounds Extremity Exam: swelling (trace pretibial edema bilat) Back Exam: normal inspection, No rash OBJECTIVE DATA Vital Signs: Vital Signs - 24 hr Temp Pulse Resp BP Pulse Ox 01/02/22 07:42 97.9 F 77 19 165/79 91 L 01/02/22 07:22 61 18 94 L 01/02/22 04:00 97.5 F 87 22 177/88 94 L 01/01/22 23:44 97.7 F 86 24 138/71 92 L 01/01/22 19:27 95 H 20 92 L 01/01/22 19:17 97.5 F 92 H 24 150/66 94 L 01/01/22 16:00 98.0 F 98 H 19 143/72 93 L 01/01/22 15:48 94 H 22 92 L 01/01/22 12:00 98.7 F 85 19 172/77 96 01/01/22 10:54 70 22 95 Pain Assessment - Last Documented Pain Intensity 7 [facility] Intake and Output: Intake & Output 12/30/21 12/31/21 01/01/22 01/02/22 11:59 11:59 11:59 11:59 Intake Total 680 3718 604 7636 Output Total 2353 1995 2305 3802 Balance -4067 -7664 -7034 -4762 Weight 123.4 kg 123.4 kg 130.5 kg Lab Results: Lab Results-Last 24 Hours 01/02/22 01/02/22 01/02/22 Range/Units 04:41 04:41 04:41 WBC 7.3 (4.0-10.5) x10^3/uL RBC 5.57 (4.1-5.6) x10^6/uL Hgb 14.5 (12.5-18.0) g/dL Hct 49.5 (42-50) % MCV 88.9 (78-100) fL MCH 26.0 (26-32) pg MCHC 29.3 L (32-36) g/dL RDW 15.0 H (11.5-14.0) % Plt Count 292 (150-450) x10^3/uL MPV 11.0 (7.5-11.0) fL Sodium 136 L (137-145) mmol/L Potassium 4.8 (3.5-5.1) mmol/L Chloride 90 L (98-107) mmol/L Carbon Dioxide 41 H (22-30) mmol/L Anion Gap 9.8 (5-15) MEQ/L BUN 38 H (9-20) mg/dL Creatinine 0.82 (0.66-1.25) mg/dL Estimated GFR > 60.0 ML/MIN Glucose 255 H (74-106) mg/dL Calcium 8.0 L (8.4-10.2) mg/dL Total Bilirubin 0.80 (0.2-1.3) mg/dL AST 22 (17-59) U/L ALT 54 H (0-50) U/L Alkaline Phosphatase 98 (38-126) U/L Serum Total Protein 6.1 L (6.3-8.2) g/dL Albumin 3.2 L (3.5-5.0) g/dL Theophylline 4.6 L (10-20) ug/mL Radiology Exams: Radiology Procedures Category Date Time Status CHEST 1 VIEW (PORTABLE) Routine Exams 01/02/22 06:48 Completed Multi-Disciplinary Progress Notes: Multi-Disciplinary Progress Notes 01/01/22 13:22 Pharmacy Note by Gibson Salvador Pharmacokinetic dosing service Date: Time: 1330 Objective: Patient: JOSEPH CORDOVA Floor: 118 Age: 66 yo Serum creatinine: 0.91 mg/dL Height: 70 Inches Weight (kg): 123 Diagnosis: PNEUMONIA VS codp Relevant medical/social history: smoker Cultures and sensitivities: na Other labs: wbc = 7.5 Assessment: IBW (kg): 73.00 Dosing wt(kg): 123 Estimated Creatinine clearance (ml/min): 80.2 CRCL method: Cockcroft and Gault using ibw(default). Drug selected: Vancomycin Loading dose (mg): 2000 mg Vd (liters): 92.2 (factor used: 0.75 L/kg) Danny (hr-1): 0.071 Half life (hrs): 9.76 Recommended dose: 1500 mg Interval: 12 hrs Infusion time (hrs): 2.0 Predicted peak (mcg/mL): 26.4 Predicted trough (mcg/mL): 12.98 Total body weight is being used for vancomycin dosing. Renal function is stable [xxx ] /unstable [ ] Recommendations: Give Vancomycin 1500 mg q 12 hrs with an expected Cpeak of 26.4 mcg/ml and an expected Ctrough of 12.98 mcg/ml Renal dosing of other antibiotics (review renal dosing of other medications and list guidelines here): na Thank you for the consult, will continue to follow. Signature: Gibson Salvador Initialized on 01/01/22 13:22 - END OF NOTE Assessment/Plan (1) Hypoxemia Current Visit: Yes Status: Acute Assessment & Plan: On O2, will need at home. Likely home tomorrow, with [facility]. Code(s): R09.02 - HYPOXEMIA (2) COPD exacerbation Current Visit: Yes Status: Acute Assessment & Plan: Seen by Dr. Felipe, thank you. Will slowly decrease IV steroid (to 40mg IV q12h today) with a goal of sending pt home tomorrow. He is now on theophylline. Will follow up with Dr. Felipe outpatient. Code(s): J44.1 - CHRONIC OBSTRUCTIVE PULMONARY DISEASE W (ACUTE) EXACERBATION (3) Pneumonia Current Visit: Yes Status: Acute Qualifiers: Pneumonia type: due to unspecified organism Laterality: bilateral Lung location: lower lobe of lung Qualified Code(s): J18.9 - Pneumonia, unspecified organism Assessment & Plan: Was treated with rocephin and zithromax; rocephin changed to vancomycin yest erday in light of positive preliminary blood culture. Zithromax stopped today as he completed 5 d of treatment. Code(s): J18.9 - PNEUMONIA, UNSPECIFIED ORGANISM (4) Tobacco abuse Current Visit: Yes Status: Chronic Code(s): Z72.0 - TOBACCO USE (5) Obesity Current Visit: Yes Status: Chronic Code(s): E66.9 - OBESITY, UNSPECIFIED (6) CHF (congestive heart failure) Current Visit: Yes Status: Chronic Code(s): I50.9 - HEART FAILURE, UNSPECIFIED (7) Positive blood culture Current Visit: Yes Status: Ruled-out Assessment & Plan: Was started on vancomycin, but ended up having coag neg staph (likely contaminant) so will stop the vancomycin. Code(s): R78.81 - BACTEREMIA (8) DVT prophylaxis Current Visit: Yes Status: Chronic Assessment & Plan: Discussed; pt refuses lovenox. Is up out of bed frequently. Code(s): Z29.9 - ENCOUNTER FOR PROPHYLACTIC MEASURES, UNSPECIFIED
[2022-01-02] MEDS: Furosemide 100mg/10 ml Vial IV SCH (10:40)
[2022-01-02] MEDS: ROCEPHIN 1 Gm-D5w 50 ml Bag** 1 G/50 ML IVPB IV SCH (10:42)
[2022-01-02] MEDS: VANCOMYCIN 1.5 GRAM/300 ML BAG 1.5 GM/300 ML PIGGYBACK IV SCH (10:57)
[2022-01-02] MEDS: solu-MEDROL 40 MG, Sterile H2O 10 ml 1 ML IV SCH ×2 (21:14)
[2022-01-03] MEDS: PERCOCET TABLET 5/325MG PO PRN ×4 (01:04→14:55)
[2022-01-03] MEDS: DUONEB 0.5-3 MG/3 ml Neb IH SCH ×3 (06:43→15:28)
[2022-01-03] MEDS: Advair Hfa 115/21 Common canister IH SCH (06:46)
--- NOTE | 2022-01-03 09:01 | PCM.DS ---
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 Found to have pneumonia. Was treated with rocephin and zithromax, with IV steroids. Dr. Atkins was consulted, thank you, and added theophylline and advised slow steroid taper and f/u with him in office. Pt had positive preliminary blood cx and rocephin was changed to zosyn. However, the culture final result was likely contamination so the antibiotic was stopped. CXR initially showed bibasilar infiltrate v atelectasis. CT chest with L sided consolidation in the lingula and L upper lobe infiltrate. Pt's d-dimer was elevated initially. Troponin initially bumped up but then trended down. Renal function normal throughout his stay. Pt refused lovenox for DVT prophylaxis. Pt noted to have depression on admission and will f/u at [facility]. Pt is feeling well today. Concerned about having a ride home. Pt's new medicines are: Duonebs Theophylline 300mg po BID Singulair 10mg/d lasix 40mg/d - will need outpatient BMP/BNP in 4-5d to recheck Prednisone - slow taper - 60mg po daily x 7d then 40mg po daily, needs to f/u with pulmonology within a week augmentin - x3d lactobacillus - Vitals & Intake/Output Vital Signs: Vital Signs Temperature 97.8 F 01/03/22 07:08 Pulse Rate 85 01/03/22 07:08 Respiratory Rate 16 01/03/22 07:08 Blood Pressure 157/72 01/03/22 07:08 O2 Sat by Pulse Oximetry 98 01/03/22 07:08 Intake & Output: Intake & Output 12/31/21 01/01/22 01/02/22 01/03/22 11:59 11:59 11:59 11:59 Intake Total 4576 053 5174 240 Output Total 2475 2300 4450 1800 Balance -2896 -0331 -8105 -1560 Weight 123.4 kg 130.5 kg 130.2 kg - Lab Result Diagrams: 01/02/22 04:41 01/02/22 04:41 Micro Results-Entire Visit: Microbiology 12/27/21 16:00 Blood Culture Gram Stain - Final Blood Blood Culture - Final Coagulase Negative Staph. Possible Contaminant. Clinical judgement required. No further workup performed. - Radiology Exams Ordered Rad Exams-Entire Visit: Radiology Procedures Category Date Time Status CHEST 1 VIEW (PORTABLE) Routine Exams 01/02/22 06:48 Completed - Procedures and Test Procedures and Tests throughout Hospitalization: Therapy Orders & Screens 12/27/21 15:45 Respiratory Therapy Consult ONCE Comment: Reason For Exam: 12/27/21 16:25 Respiratory Therapy Assessment DAILY Comment: 12/27/21 21:24 Oxygen Nasal Cannula 3 lpm Comment: Diagnosis: CHF 12/27/21 21:58 Smoking Cessation Education ONCE Comment: Diagnosis: CHF Smoking Status: Current every day smoker How long have you smoked: YEARS Have you smoked in the past 12 months: Yes Approximately how many cigarettes per day: 10 Do you dip or chew tobacco: No 12/27/21 23:43 EKG ROUTINE Comment: protocol due to elevated troponin Diagnosis: CHF 12/28/21 11:07 PT Eval & Treat (MD Order) ONCE Reason for Eval:: EVAL FOR WALKER Diagnosis: CHF 12/29/21 20:51 Flutter Therapy UD Comment: Diagnosis: HYPOXEMIA, PNEUMONIA, COPD EXAC Discharge Exam General Appearance: no apparent distress, alert, obese Neurologic Exam: oriented x 3, cooperative Eye Exam: eyes nml inspection Ears, Nose, Throat Exam: moist mucous membranes Neck Exam: normal inspection Respiratory Exam: diminished breath sounds (fair to good air exchange), wheezing (scattered), No crackles/rales, No rhonchi Cardiovascular Exam: regular rate/rhythm, normal heart sounds, No murmur Back Exam: normal inspection, No rash Extremity Exam: normal inspection, swelling (trace pretibial edema bilat) Skin Exam: normal color, warm, dry, No rash Final Diagnosis/Problem List - Final Discharge Diagnosis/Problem (1) Hypoxemia Current Visit: Yes Status: Acute Assessment & Plan: home on O2 per [place] Code(s): R09.02 - HYPOXEMIA (2) COPD exacerbation Current Visit: Yes Status: Acute Assessment & Plan: Improved; has finished 7d antibiotics; send home on 3 more days. steroids. theophylline. f/u with Dr. Atkins, thank you. Code(s): J44.1 - CHRONIC OBSTRUCTIVE PULMONARY DISEASE W (ACUTE) EXACERBATION (3) Pneumonia Current Visit: Yes Status: Acute Code(s): J18.9 - PNEUMONIA, UNSPECIFIED ORGANISM (4) Tobacco abuse Current Visit: Yes Status: Chronic Assessment & Plan: Pt needs to stop smoking. Code(s): Z72.0 - TOBACCO USE (5) Obesity Current Visit: Yes Status: Chronic Code(s): E66.9 - OBESITY, UNSPECIFIED (6) CHF (congestive heart failure) Current Visit: Yes Status: Chronic Code(s): I50.9 - HEART FAILURE, UNSPE CIFIED (7) DVT prophylaxis Current Visit: Yes Status: Chronic Code(s): Z29.9 - ENCOUNTER FOR PROPHYLACTIC MEASURES, UNSPECIFIED - Discharge Disposition: Home, Self-Care Condition: Stable Prescriptions: New Lactobacillus Acidophilus [Acidophilus TABLET] 1 tab PO TID #12 tablet Amox Tr/Potass Clav. 875 mg [Augmentin 875-125 Tablet] 875 mg PO BID 3 Days #6 tablet Prednisone 20 mg [Deltasone 20 mg] 60 mg PO DAILY #42 tablet Albuterol/Ipratropium 3ml Neb* [DUONEB 0.5-3 MG/3 ml Neb] 3 ml IH QID #60 unit Furosemide 40 mg [Lasix 40 MG] 40 mg PO DAILY #30 tablet Nicotine 21 mg [Nicoderm CQ 21 MG] 21 mg TOP Q24H #14 patch Montelukast Sodium 10 mg [Singulair 10 MG] 10 mg PO DAILY #30 tablet Theophylline Anhydrous [Theophylline ER 24Hr] 300 mg PO BID #60 tab Continue Meloxicam [Mobic] 15 mg PO DAILY Losartan Potassium [Cozaar] 100 mg PO DAILY Fluticasone/Umeclidin/Vilanter [Trelegy Ellipta 100-62.5-25] 1 puff PO DAILY Amlodipine Besylate [Norvasc] 10 mg PO DAILY Oxycodone / APAP 10/325 mg [Oxycodone-Acetaminophen 10-325] 1 tab PO TID PRN Additional Instructions: [facility]. [facility] WILL CONTACT YOU TO SET UP A TIME TO SEE YOU. THEIR PHONE NUMBER IS [phone]. A REFERRAL WAS ALSO SENT TO [facility] [place]. THEY WILL REACH OUT TO YOU WELL. THEIR PHONE NUMBER IS [phone] Follow up with: MARLEN ATKINS [ACTIVE STAFF] - KAYLIE RITCHIE NP [NON-STAFF PHY W/O PRIVILEGES] -
[2022-01-03] MEDS ORDERED: TROUGH DRUG LEVELS IJ ONE (09:30)
[2022-01-03] MEDS: Acidophilus TABLET PO SCH ×2 (09:58→14:56)
[2022-01-03] MEDS: NORVASC 5 MG PO SCH (09:59)
[2022-01-03] MEDS: Cozaar 50 MG PO SCH (09:59)
[2022-01-03] MEDS: THEOPHYLLINE ER 24HR PO SCH (09:59)
[2022-01-03] MEDS: MELOXICAM PO SCH (09:59)
[2022-01-03] MEDS: Singulair 10 MG PO SCH (09:59)
[2022-01-03] MEDS: Furosemide 100mg/10 ml Vial IV SCH (10:00)
[2022-01-03] MEDS: Nicoderm CQ 21 MG TOP SCH (10:03)
[2022-01-03] MEDS: solu-MEDROL 40 MG, Sterile H2O 10 ml 1 ML IV SCH ×2 (10:58)
[2022-01-03 15:33] VITALS: PULSE 104
[2022-01-03 16:32] VITALS: BP 163/74; O2SAT 95
== END 2022-01-03 16:45 | disposition home or self-care (01) | DRG 205 ==
LOC: ED 15:40 → MED SURG 18:28 → OBSVTOIN 12-28 09:07
PROVIDERS: ADMIT Family Medicine; ATTEND Family Medicine
DX: R09.02 Hypoxemia (principal); J18.9 Pneumonia, unspecified organism; J44.1 Chronic obstructive pulmonary disease with (acute) exacerbation; R44.3 Hallucinations, unspecified; R78.81 Bacteremia; Z72.0 Tobacco use; E66.9 Obesity, unspecified; I11.0 Hypertensive heart disease with heart failure; I50.9 Heart failure, unspecified; R77.8 Other specified abnormalities of plasma proteins; M54.9 Dorsalgia, unspecified; R73.03 Prediabetes; Z29.9 Encounter for prophylactic measures, unspecified; Z79.899 Other long term (current) drug therapy; Z20.828 Contact with and (suspected) exposure to other viral communicable diseases
CPT/HCPCS: 0241U; 36000; 36415; 71045; 71250; 80048; 80053; 80198; 81015; 83605; 83735; 83880; 84145; 84484; 85025; 85027; 85379; 85610; 87040; 93005; 93268; 94640; 94667; 94760; 94762; 96365; 96374; 97161; 97530; 99285; G0378; J0456; J0696; J1940; J2920; J2930; J7609; A9270-GY; J3370